=== PATIENT | female | born 2000 | race Two or more races ===

== ENCOUNTER 2023-03-05 17:33 | Emergency (ER) | payer OTHER ==
[~2023-03-05] VITALS: Ht 154.9 cm; Wt 51.7 kg
[2023-03-05 18:13] LABS: Basophils # (auto) 0 10 ^3/uL (0-0.2); Basophils % (auto) 0.3 % (0.0-2.0); Eosinophils # (auto) 0.1 10 ^3/uL (0-0.8); Eosinophils % (auto) 0.9 % (0.0-7.0); Hematocrit 39.9 % (36.0-46.0); Hemoglobin 13.3 g/dL (12.2-16.2); Lymphocytes # (auto) 1.7 10 ^3/uL (0.4-5.4); Lymphocytes % (auto) 16.5 % (10.0-50.0); Mean Corpuscular Hemoglobin 28.9 pg (28.0-32.0); Mean Corpuscular Hgb Conc. 33.3 g/dL (32.0-36.0); Mean Corpuscular Volume 86.9 fL (80.0-100.0); Monocytes # (auto) 0.7 10 ^3/uL (0-1.3); Monocytes % (auto) 6.3 % (0.0-12.0); Nucleated Red Blood Cells % 0.1 %; Red Blood Cells 4.59 10^6/uL (4.0-5.20); White Blood Cell 10.6 10^3/uL (4.4-10.8)
[2023-03-05 18:42] LABS: Albumin 4.2 g/dL (3.4-5.0); Calcium 9.1 mg/dL (8.5-10.1); Potassium 3.9 mmol/L (3.5-5.1)
[2023-03-05 18:46] LABS: Bilirubin, Total 0.2 mg/dL (0.2-1.0)
[2023-03-05 20:20] LABS: BUN/Creatinine Ratio 16.1 (10.0-20.0)
[2023-03-05] MEDS ORDERED: NITR-87 PO (21:07)
[2023-03-05 22:54] VITALS: BP 115/73
[2023-03-06 04:34] LABS: Urine Bacteria FEW /hpf (None Seen); Urine Blood Negative /uL (Negative); Urine Specific Gravity 1.008 (1.001-1.035); Urine WBC 1 /hpf (0 - 5)
== END 2023-03-05 23:02 | disposition home or self-care (01) ==
LOC: ER 17:33
DX: O23.41 Unspecified infection of urinary tract in pregnancy, first trimester (principal); N39.0 Urinary tract infection, site not specified; R10.2 Pelvic and perineal pain; Z3A.08 8 weeks gestation of pregnancy
CPT/HCPCS: 36415; 76705; 76801; 80053; 81001; 84702; 85025

== ENCOUNTER 2024-12-11 09:45 | Emergency (ER) | payer OTHER ==
[~2024-12-11] VITALS: Ht 154.9 cm; Wt 47.0 kg
[~2024-12-11 09:45] MED LIST: NITR-87 PO
[2024-12-11 11:01] LABS: Basophils # (auto) 0 10 ^3/uL (0-0.2); Basophils % (auto) 0.4 % (0.0-2.0); Eosinophils # (auto) 0.1 10 ^3/uL (0-0.8); Eosinophils % (auto) 1.6 % (0.0-7.0); Hematocrit 41.5 % (36.0-46.0); Hemoglobin 14.1 g/dL (12.2-16.2); Lymphocytes # (auto) 2.1 10 ^3/uL (0.4-5.4); Lymphocytes % (auto) 27.7 % (10.0-50.0); Mean Corpuscular Hemoglobin 30.7 pg (28.0-32.0); Mean Corpuscular Hgb Conc. 34.1 g/dL (32.0-36.0); Mean Corpuscular Volume 90.1 fL (80.0-100.0); Monocytes # (auto) 0.6 10 ^3/uL (0-1.3); Monocytes % (auto) 8.7 % (0.0-12.0); Neutrophils # (auto) 4.6 10 ^3/uL (1.6-8.6); Neutrophils % (auto) 61.6 % (37.0-80.0); Nucleated Red Blood Cells % 0.1 %; Platelet Count (auto) 223 10^3/uL (140-450); Red Cell Distribution Width 14.4 % (11.8-14.3); White Blood Cell 7.4 10^3/uL (4.4-10.8)
[2024-12-11 11:04] VITALS: BP 108/68; PULSE 83; RESP 18; TEMP 99.7; O2SAT 99
[2024-12-11 11:37] LABS: Urine Bacteria None Seen /hpf (None Seen)
[2024-12-11 11:47] LABS: Urine Blood Negative /uL (Negative); Urine Clarity Clear (Clear); Urine Color Light-Yellow (Yellow); Urine Protein, UAD Negative (Negative); Urine Specific Gravity 1.012 (1.001-1.035); Urine Squamous Epithelial Cell FEW /hpf (<5); Urine Urobilinogen Normal (Negative); Urine WBC < 1 /HPF (0-5)
--- NOTE | 2024-12-11 12:01 | ED.PDOC ---
COAL GETTER HPI Comments A 24 YEAR OLD FEMALE PRESENTS TO THE ED WITH CHIEF COMPLAINT OF POSSIBLE MISCARRIAGE. PATIENT REPORTS THAT SHE HAD [facility]ISITED [facility] TODAY FOR AN ULTRASOUND APPOINTMENT AND SHE WAS TOLD THAT THERE WERE 2 GESTATIONAL SACS, HOWEVER, NO "BABIES" WERE FOUND IN EITHER AND SHE MAY HAVE HAD A MISCARRIAGE. PATIENT RELAYS THAT SHE IS HERE TODAY TO CONFIRM IF SHE IS INDEED HAVING A MISCARRIAGE. PATIENT STATES SHE IS APPROXIMATELY 4-6 WEEKS AND HER LMP WAS ON 10/12/24. PATIENT NOTES SHE HAS HAD MILD ABDOMINAL CRAMPING AND LIGHT VAGINAL SPOTTING 4 DAYS AGO, BUT HER SYMPTOMS HAD SINCE RESOLVED. PATIENT DENIES ANY VAGINAL BLEEDING, DYSURIA, ABDOMINAL PAIN, FEVER, CHILLS, DIZZINESS, OR VAGINAL DISCHARGE. NO OTHER SYMPTOMS REPORTED AT THIS TIME OF CARE. Chief Complaint: Time Seen by MD: 11:58 Reviewed Notes: Nurses Notes, Medications, Allergies Allergies: Coded Allergies: NO KNOWN ALLERGIES (Unverified , 03/05/23) Home Meds Active Scripts Nitrofurantoin Monohydrate Mac (Macrobid) 100 Mg Cap, 100 MG PO BID for 5 Days, #10 CAP Prov:HENRRY TEE MD 03/05/23 Information Source: Patient, Spouse Mode of Arrival: Ambulatory Timing: Days Prehospital treatment: None Severity: Mild Vaginal Discharge: None Vaginal Lesions: None Bleeding Quality: Bright Red Vaginal Mass: None Onset Of Mass/Bleeding: Spontaneous Sexual Activity: Last Consensual [place]: Unknown Control: None History of: Current Associated Signs and Symptoms: Cramping Past Medical History PAST MEDICAL HISTORY: Denies Surgical History: Denies all surgeries CAR JOCKEY History: Denies all CAR JOCKEY Hx Family History Family History: Reviewed,noncontributory to illness Social History Smoker: Non-Smoker Alcohol: Denies ETOH Use Drugs: Marijuana Lives In: Home Constitutional: denies: chills, diaphoresis, fatigue, fever, malaise, sweats, weakness, others EENTM: denies: blurred vision, double vision, ear bleeding, ear discharge, ear drainage, ear pain, ear ringing, eye pain, eye redness, hearing loss, mouth pain, mouth swelling, nasal discharge, nose bleeding, nose congestion, nose pain, photophobia, tearing, throat pain, throat swelling, voice changes, others Respiratory: denies: cough, hemoptysis, orthopnea, SOB at rest, shortness of breath, SOB with excertion, stridor, wheezing, others Cardiovascular: denies: chest pain, dizzy spells, diaphoresis, Dyspnea on exertion, edema, irregular heart beat, left arm pain, lightheadedness, palpitations, PND, syncope, others Gastrointestinal: reports: others (MILD ABDOMINAL CRAMPING); denies: abdomen distended, abdominal pain, blood streaked bowels, constipated, diarrhea, dysphagia, difficulty swallowing, hematemesis, melena, nausea, poor appetite, poor fluid intake, rectal bleeding, rectal pain, vomiting Genitourinary: reports: , others (SPOTTING 4 DAYS AGO. ); denies: abnormal vagina bleeding, burning, dyspareunia, dysuria, flank pain, frequency, hematuria, incontinence, pain, vagina discharge, urgency Neurological: denies: dizziness, fainting, headache, left sided numbness, left sided weakness, numbness, paresthesia, pre-existing deficit, right sided numbness, right sided weakness, seizure, speech problems, tingling, tremors, weakness, others Musculoskeletal: denies: back pain, gout, joint pain, joint swelling, muscle pain, muscle stiffness, neck pain, others Integumetry: denies: bruises, change in color, change in hair/nails, dryness, laceration, lesions, lumps, rash, wounds, others Allergic/Immunocompromised: denies: Difficulty Healing, Frequent Infections, Hives, Itching, others Hematologic/Lymphatic: denies: anemia, blood clots, easy bleeding, easy bruising, swollen glands, others Endocrine: denies: excessive hunger, excessive sweating, excessive thirst, excessive urination, flushing, intolerance to cold, intolerance to heat, unexplained weight gain, unexplained weight loss, others Psychiatric: denies: anxiety, bipolar disorder, depression, hopeless, panic disorder, schizophrenia, sleepless, suicidal, others All Other Systems: Reviewed and Negative Physical Exam General Appearance: No Apparent Distress, Normal HEENT: Normal ENT Inspection, PERRL/EOMI, Pharynx Normal Neck: Full Range of Motion, Non-Tender, Normal, Normal Inspection Respiratory: Chest Non-Tender, Lungs Clear, No Accessory Muscle Use, No Respiratory Distress, Normal Breath Sounds Cardiovascular: No Edema, No JVD, No Murmur, No Gallop, Normal Peripheral Pulses, Regular Rate/Rhythm Breast Exam: Deferred Gastrointestinal: No Organomegaly, Non Tender, No Pulsatile Mass, Normal Bowel Sounds, Soft Genitalia: Deferred Pelvic: Normal External Exam, Other (NO VAGINAL SPOTTING AND BLEEDING. ) Rectal: Deferred Extremities: No calf tenderness, Normal capillary refill, Normal inspection, Normal range of motion, Non-tender, No pedal edema Musculoskeletal : Apperance: Normal Neurologic: Alert, hand packer/packager II-XII nml as Tested, No Motor Deficits, Normal Affect, Normal Mood, No Sensory Deficits Cerebellar Function: Normal Reflexes: Normal Skin: Dry, Normal Color, Warm Lymphatic: No Adenopathy Was a procedure done? Was a procedure done?: No Differential Diagnosis (CAR JOCKEY) Vaginal Bleeding: - Inevitable, - Threatened, Ectopic Vaginal Discharge: X-Ray, Labs, Meds, VS Vital Signs Date Time Temp Pulse Resp B/P (MAP) Pulse Ox O2 Delivery O2 Flow Rate FiO2 12/11/24 11:04 99.7 83 18 108/68 (81) 99 99.7 12/11/24 11:04 83 18 99 Room Air 12/11/24 10:17 99.7 83 18 108/68 (81) 99 Lab Test 12/11/24 11:00 12/11/24 10:42 Range/Units Urine Color Light-yellow Yellow Urine Clarity Clear Clear Urine pH 6.0 5.0-9.0 Urine Specific [place] 1.012 1.001-1.035 Urine Protein Negative Negative Urine Ketones Negative Negative Urine Blood Negative Negative /uL Urine Nitrite Negative Negative Urine Bilirubin Negative Negative Urine Urobilinogen Normal Negative mg/dL Urine Leukocyte Esterase Negative Negative /uL Urine RBC <1 0 - 4 /hpf Urine Microscopic WBC < 1 0-5 /HPF Urine Squamous Epithelial Cells Few <5 /hpf Urine Bacteria None seen None Seen /hpf Urine Glucose Normal Normal mg/dL Urine Test Positive Negative White Blood Count 7.4 4.4-10.8 10^3/uL Red Blood Count 4.60 4.0-5.20 10^6/uL Hemoglobin 14.1 12.2-16.2 g/dL Hematocrit 41.5 36.0-46.0 % Mean Corpuscular Volume 90.1 80.0-100.0 fL Mean Corpuscular Hemoglobin 30.7 28.0-32.0 pg Mean Corpuscular Hemoglobin Concent 34.1 32.0-36.0 g/dL Red Cell Distribution Width 14.4 H 11.8-14.3 % Platelet Count 223 140-450 10^3/uL Mean Platelet Volume 8.2 6.9-10.8 fL Neutrophils (%) (Auto) 61.6 37.0-80.0 % Lymphocytes (%) (Auto) 27.7 10.0-50.0 % Monocytes (%) (Auto) 8.7 0.0-12.0 % Eosinophils (%) (Auto) 1.6 0.0-7.0 % Basophils (%) (Auto) 0.4 0.0-2.0 % Neutrophils # (Auto) 4.6 1.6-8.6 10 ^3/uL Lymphocytes # (Auto) 2.1 0.4-5.4 10 ^3/uL Monocytes # (Auto) 0.6 0-1.3 10 ^3/uL Eosinophils # (Auto) 0.1 0-0.8 10 ^3/uL Basophils # (Auto) 0 0-0.2 10 ^3/uL Nucleated Red Blood Cells 0.1 % Beta HCG, Quantitative 43927.1 H 1.5-4.2 mIU/mL OB US: FINDINGS: The uterus measures 11.6 x 4.6 x 8.4 cm The cervix not well visualized. Right ovary measures 2.4 x 1.5 x 3.5 with normal Doppler color flow Left ovary measures 2.5 x 2.7 x 1.6 with normal Doppler color flow IUP TWIN A fetus at 5 weeks 1 day average ultrasound age based on gestational sac size of 1.1 cm. Debris is visualized in the gestational sac. heart rate not detected at this time. IUP TWIN B fetus at 5 weeks 2 days average ultrasound age based gestational sac size of 1.2 cm. Debris is visualized in the gestational sac. heart rate not detected at this time. Possible subchorionic hematoma measuring 2.7 cm. IMPRESSION: IUP TWIN A fetus at 5 weeks 1 day average ultrasound age based on gestational sac size of 1.1 cm. Debris is visualized in the gestational sac. heart rate not detected at this time. IUP TWIN B fetus at 5 weeks 2 days average ultrasound age based gestational sac size of 1.2 cm. Debris is visualized in the gestational sac. heart rate is not detected at this time. Possible subchorionic hematoma measuring 2.7 cm. Recommend correlation with beta HCG and short-term follow-up pelvic ultrasound as clinically indicated. X-Ray, Labs, Meds, VS Comment EXTERNAL MEDICAL RECORDS REVIEWED: 03/05/23 FOR ABDOMINAL PAIN DURING INDEPENDENT HISTORIANS: SPOUSE SOCIAL DETERMINANTS OF HEALTH: [NONE] LABS ORDERED: CBC, UA, URINE PREG, BETA HCG QUANT REVIEWED AND INTERPRETED RESULTS: OB US IMAGING ORDERED: OB US TREATMENTS ORDERED: NONE PROCEDURES PERFORMED: NONE CRITICAL CARE TIME: NONE I HAVE DISCUSSED THE PATIENT WITH THE ATTENDING PHYSICIAN DR. NAGEL AND HE AGREES WITH THE PATIENT'S PLAN OF CARE AND DISPOSITION. BASED ON HISTORY OF PRESENT ILLNESS, AND PHYSICAL EXAM, PATIENT WILL BE DISCHARGED HOME. DISCUSSED PLAN FOR DISCHARGE HOME WITH RX. MEDICATION WARNINGS GIVEN. SHARED DECISION MAKING: DISCUSSED WITH PATIENT THAT THEIR WORKUP WAS NORMAL. PATIENT INSTRUCTED TO FOLLOW UP WITH PRIMARY CARE PROVIDER IN 1-2 DAYS FOR RE- EVALUATION OF SYMPTOMS. PATIENT VERBALIZES UNDERSTANDING TO RETURN TO ED FOR NEW OR WORSENING SYMPTOMS OR IF FOLLOW UP WITH PCP CANNOT BE OBTAINED. PATIENT FEELS COMFORTABLE GOING HOME AT THIS TIME. ALL QUESTIONS ADDRESSED AT TIME OF DISCHARGE. Images Reviewed?: Images reviewed and evaluated by me Time of 1ST Reevaluation: 13:30 Reevaluation 1ST: Improved Patient Education/Counseling: Diagnosis, Treatment, Need For Follow Up Family Education/Counseling: Diagnosis, Treatment, Need For Follow Up Medical Screening: No EMC Exist At This Time Departure 1 Departure Time of Disposition: 13:30 Impression: Primary Impression: Twin in first trimester Qualified Codes: O30.001 - Twin , unspecified number of placenta and unspecified number of amniotic sacs, first trimester Disposition: 01 HOME / SELF CARE / HOMELESS Condition: Stable Additional Instructions: FOLLOW-UP WITH COAL GETTER IN 2 DAYS. TAKE MEDICATIONS PRESCRIBED. RETURN TO ED FOR ANY NEW OR WORSENING SYMPTOMS. Discharged With: Self, Spouse Critical Care Note Critical Care Time?: No Stability Stability form required: No Heart Score Heart Score: Heart Score Response (Comments) Value History N/A 0 EKG N/A 0 Age N/A 0 Risk Factors N/A 0 Troponin N/A 0 Total 0 I personally scribed for BECCA LONGO ([email or web address]) on 12/11/24 at 12:01. Electronically submitted by [place] Garcia ([email or web address]). I personally scribed for BECCA LONGO ([email or web address]) on 12/11/24 at 12:09. Electronically submitted by Los Garcia ([email or web address]). I personally scribed for BECCA LONGO ([email or web address]) on 12/11/24 at 12:14. Electronically submitted by Los Garcia ([email or web address]). I personally scribed for BECCA LONGO ([email or web address]) on 12/11/24 at 13:18. Electronically submitted by Los Garcia ([email or web address]). BECCA LONGO Dec 11, 2024 12:01
--- NOTE | 2024-12-11 13:15 | DVH ---
OB ULTRASOUND <14 WEEKS: HISTORY: PELVIC CRAMPS, BETA-HC.1 TECHNIQUE: Multiple real-time grayscale sonographic images of the pelvis with duplex Doppler color f low, spectral and M-mode analysis. TRANSDUCERS: Transabdominal and transvaginal FINDINGS: The uterus measures 11.6 x 4.6 x 8.4 cm The cervix not well visualized. Right ovary measures 2.4 x 1.5 x 3.5 with normal Doppler color flow Left ovary measures 2.5 x 2.7 x 1.6 with normal Doppler color flow IUP TWIN A fetus at 5 weeks 1 day average ultrasound age based on gestational sac size of 1.1 cm. De bris is visualized in the gestational sac. heart rate not detected at this time. IUP TWIN B fetus at 5 weeks 2 days average ultrasound age based gestational sac size of 1.2 cm. Apple ris is visualized in the gestational sac. heart rate not detected at this time. Possible subchorionic hematoma measuring 2.7 cm. IMPRESSION: IUP TWIN A fetus at 5 weeks 1 day average ultrasound age based on gestational sac size of 1.1 cm. De bris is visualized in the gestational sac. heart rate not detected at this time. IUP TWIN B fetus at 5 weeks 2 days average ultrasound age based gestational sac size of 1.2 cm. Apple ris is visualized in the gestational sac. heart rate is not detected at this time. Possible subchorionic hematoma measuring 2.7 cm. Recommend correlation with beta HCG and short-term follow-up pelvic ultrasound as clinically indicate d.
== END 2024-12-11 13:30 | disposition home or self-care (01) ==
LOC: ER 09:45
DX: O30.001 Twin pregnancy, unspecified number of placenta and unspecified number of amniotic sacs, first trimester (principal); O26.891 Other specified pregnancy related conditions, first trimester; Z3A.08 8 weeks gestation of pregnancy
CPT/HCPCS: 36415; 76801; 81001; 81025; 84702; 85025

== ENCOUNTER 2024-12-25 02:00 | Emergency (ER) | payer OTHER ==
[~2024-12-25] VITALS: Ht 152.4 cm; Wt 49.4 kg
--- NOTE | 2024-12-25 02:48 | ED.PDOC ---
MANAGER IMPLEMENTATION HPI Comments 24 year old female presents to the ED with a chief complaint of vaginal bleeding onset today (12/25/2024) about 1 hour ago. Patient states she went to the restroom and noted dark blood as well as slight cramping. Patient is currently 8 weeks , was seen in this ED on 12/11/2024 and was told she was 5 weeks with twins. Patient has not seen OBGYN, has an appointment 12/29/24. P:0. LMP 10/12/24. Denies any PMHx as well as nausea, vomiting, fall, injury, chest pain, shortness of breath, dysuria, fever. No other symptoms or modifying factors present at this time. Chief Complaint: Vaginal Bleed Time Seen by MD: 02:35 Reviewed Notes: Medications, Allergies Allergies: Coded Allergies: NO KNOWN ALLERGIES (Unverified , 03/05/23) Home Meds Active Scripts Nitrofurantoin Monohydrate Mac (Macrobid) 100 Mg Cap, 100 MG PO BID for 5 Days, #10 CAP Prov:HENRRY TEE MD 03/05/23 Information Source: Patient Mode of Arrival: Ambulatory Timing: Hours Prehospital treatment: None Severity: Moderate Vaginal Discharge: None Vaginal Lesions: None Bleeding Quality: Dark Vaginal Mass: None Onset Of Mass/Bleeding: Spontaneous Sexual Activity: Last Consensual [place]: Unknown Control: None History of: Current Symptoms of Possible : Missed Period Associated Signs and Symptoms: Vaginal Bleeding, Cramping Past Medical History PAST MEDICAL HISTORY: Denies Surgical History: Denies all surgeries CAMPAIGN COORDINATOR History: Denies all CAMPAIGN COORDINATOR Hx Family History Family History: Reviewed,noncontributory to illness Social History Smoker: Non-Smoker Alcohol: Denies ETOH Use Drugs: Marijuana Lives In: Home Constitutional: denies: chills, diaphoresis, fatigue, fever, malaise, sweats, weakness, others EENTM: denies: blurred vision, double vision, ear bleeding, ear discharge, ear drainage, ear pain, ear ringing, eye pain, eye redness, hearing loss, mouth pain, mouth swelling, nasal discharge, nose bleeding, nose congestion, nose pain, photophobia, tearing, throat pain, throat swelling, voice changes, others Respiratory: denies: cough, hemoptysis, orthopnea, SOB at rest, shortness of breath, SOB with excertion, stridor, wheezing, others Cardiovascular: denies: chest pain, dizzy spells, diaphoresis, Dyspnea on exertion, edema, irregular heart beat, left arm pain, lightheadedness, palpitations, PND, syncope, others Gastrointestinal: denies: abdomen distended, abdominal pain, blood streaked bowels, constipated, diarrhea, dysphagia, difficulty swallowing, hematemesis, melena, nausea, poor appetite, poor fluid intake, rectal bleeding, rectal pain, vomiting, others Genitourinary: reports: abnormal vagina bleeding, ; denies: burning, dyspareunia, dysuria, flank pain, frequency, hematuria, incontinence, pain, vagina discharge, urgency, others Neurological: denies: dizziness, fainting, headache, left sided numbness, left sided weakness, numbness, paresthesia, pre-existing deficit, right sided numbness, right sided weakness, seizure, speech problems, tingling, tremors, weakness, others Musculoskeletal: denies: back pain, gout, joint pain, joint swelling, muscle pain, muscle stiffness, neck pain, others Integumetry: denies: bruises, change in color, change in hair/nails, dryness, laceration, lesions, lumps, rash, wounds, others Allergic/Immunocompromised: denies: Difficulty Healing, Frequent Infections, Hives, Itching, others Hematologic/Lymphatic: denies: anemia, blood clots, easy bleeding, easy bruising, swollen glands, others Endocrine: denies: excessive hunger, excessive sweating, excessive thirst, excessive urination, flushing, intolerance to cold, intolerance to heat, unexplained weight gain, unexplained weight loss, others Psychiatric: denies: anxiety, bipolar disorder, depression, hopeless, panic disorder, schizophrenia, sleepless, suicidal, others All Other Systems: Reviewed and Negative Physical Exam General Appearance: No Apparent Distress, Normal HEENT: Normal ENT Inspection, Pharynx Normal, TMs Normal Neck: Full Range of Motion, Non-Tender, Normal, Normal Inspection Respiratory: Chest Non-Tender, Lungs Clear, No Accessory Muscle Use, No Respiratory Distress, Normal Breath Sounds Cardiovascular: No Edema, No JVD, No Murmur, No Gallop, Normal Peripheral Pulses, Regular Rate/Rhythm Breast Exam: Deferred Gastrointestinal: No Organomegaly, Non Tender, No Pulsatile Mass, Normal Bowel Sounds, Soft Genitalia: Deferred Pelvic: Deferred Rectal: Deferred Extremities: No calf tenderness, Normal capillary refill, Normal inspection, Normal range of motion, Non-tender, No pedal edema Musculoskeletal : Apperance: Normal Neurologic: Alert, spud grader II-XII nml as Tested, No Motor Deficits, Normal Affect, Normal Mood, No Sensory Deficits Cerebellar Function: Normal Reflexes: Normal Skin: Dry, Normal Color, Warm Lymphatic: No Adenopathy Was a procedure done? Was a procedure done?: No X-Ray, Labs, Meds, VS Vital Signs Date Time Temp Pulse Resp B/P (MAP) Pulse Ox O2 Delivery O2 Flow Rate FiO2 12/25/24 02:12 98.1 107 20 130/94 (106) 99 Lab Test 12/25/24 03:27 12/25/24 02:22 Range/Units White Blood Count 8.2 4.4-10.8 10^3/uL Red Blood Count 4.58 4.0-5.20 10^6/uL Hemoglobin 13.5 12.2-16.2 g/dL Hematocrit 41.2 36.0-46.0 % Mean Corpuscular Volume 90.0 80.0-100.0 fL Mean Corpuscular Hemoglobin 29.6 28.0-32.0 pg Mean Corpuscular Hemoglobin Concent 32.9 32.0-36.0 g/dL Red Cell Distribution Width 14.1 11.8-14.3 % Platelet Count 232 140-450 10^3/uL Mean Platelet Volume 8.3 6.9-10.8 fL Neutrophils (%) (Auto) 60.0 37.0-80.0 % Lymphocytes (%) (Auto) 29.2 10.0-50.0 % Monocytes (%) (Auto) 8.4 0.0-12.0 % Eosinophils (%) (Auto) 1.8 0.0-7.0 % Basophils (%) (Auto) 0.6 0.0-2.0 % Neutrophils # (Auto) 4.9 1.6-8.6 10 ^3/uL Lymphocytes # (Auto) 2.4 0.4-5.4 10 ^3/uL Monocytes # (Auto) 0.7 0-1.3 10 ^3/uL Eosinophils # (Auto) 0.1 0-0.8 10 ^3/uL Basophils # (Auto) 0 0-0.2 10 ^3/uL Nucleated Red Blood Cells 0.2 % Sodium Level 137 136-145 mmol/L Potassium Level 4.0 3.5-5.1 mmol/L Chloride Level 107 98-107 mmol/L Carbon Dioxide Level 22 20-31 mmol/L Anion Gap 8 5-15 Blood Urea Nitrogen 8 L 9-23 mg/dL Creatinine 0.53 L 0.550-1.02 mg/dL Glomerular Filtration Rate Calc 132 >90 mL/min BUN/Creatinine Ratio 15.1 10.0-20.0 Serum Glucose 94 74-106 mg/dL Calcium Level 9.7 8.7-10.4 mg/dL Beta HCG, Quantitative 03308.8 H 1.5-4.2 mIU/mL Urine Color Colorless Yellow Urine Clarity Clear Clear Urine pH 6.5 5.0-9.0 Urine Specific [place] 1.003 1.001-1.035 Urine Protein Negative Negative Urine Ketones Negative Negative Urine Blood 2+ H Negative /uL Urine Nitrite Negative Negative Urine Bilirubin Negative Negative Urine Urobilinogen Normal Negative mg/dL Urine Leukocyte Esterase Negative Negative /uL Urine RBC <1 0 - 4 /hpf Urine Microscopic WBC 0-5 /HPF Urine Squamous Epithelial Cells None seen <5 /hpf Urine Bacteria None seen None Seen /hpf Urine Sperm Present None Seen /hpf Urine Glucose Normal Normal mg/dL Time of 1ST Reevaluation: 03:05 Reevaluation 1ST: Unchanged Patient Education/Counseling: Diagnosis, Treatment, Prognosis Family Education/Counseling: No Family Present Additional Information The following tests were ordered, and results were reviewed by me: BETA HCG, BMP, CBC, UA, OB ULTRASOUND COMP LESS 14 WKS, ABORH TYPE I reviewed and agreed with the following test results read by other providers:OB ULTRASOUND COMP LESS 14 WKS, I discussed treatment and results with medical personnel and: patient Departure 1 Departure Time of Disposition: 05:41 (Patient with a threatened miscarriage, subchorionic hemorrhage and possible twins. The patient home with outpatient follow up) Impression: Primary Impression: Twin in first trimester Qualified Codes: O30.091 - Twin , unable to determine number of placenta and number of amniotic sacs, first trimester Additional Impressions: Subchorionic hemorrhage Qualified Codes: O20.8 - Other hemorrhage in early Threatened miscarriage Disposition: 01 HOME / SELF CARE / HOMELESS Condition: Stable Additional Instructions: You have a threatened miscarriage. Your beta hcg level today was 028[address]. Your ultrasound showed a likely twin and a subchorionic hemorrhage. . You should follow up with OBGYN within three days to recheck your blood work. If your symptoms worsen or you have any other concerns then please return to the ER. Discharged With: Self Critical Care Note Critical Care Time?: No Stability Stability form required: No I personally scribed for JESSY JEFFERS MD ([email or web address]) on 12/25/24 at 02:48. Electronically submitted by Shelby Vázquez ([email or web address]). I personally scribed for JESSY JEFFERS MD ([email or web address]) on 12/25/24 at 02:57. Electronically submitted by Shelby Vázquez ([email or web address]). I personally scribed for JESSY JEFFERS MD ([email or web address]) on 12/25/24 at 03:12. Electronically submitted by Shelby Vázquez ([email or web address]). JESSY JEFFERS MD Dec 25, 2024 02:48
[2024-12-25 03:16] LABS: Urine Bacteria None Seen /hpf (None Seen)
[2024-12-25 03:45] LABS: Basophils # (auto) 0 10 ^3/uL (0-0.2); Basophils % (auto) 0.6 % (0.0-2.0); Eosinophils # (auto) 0.1 10 ^3/uL (0-0.8); Eosinophils % (auto) 1.8 % (0.0-7.0); Hematocrit 41.2 % (36.0-46.0); Hemoglobin 13.5 g/dL (12.2-16.2); Lymphocytes # (auto) 2.4 10 ^3/uL (0.4-5.4); Lymphocytes % (auto) 29.2 % (10.0-50.0); Mean Corpuscular Hemoglobin 29.6 pg (28.0-32.0); Mean Corpuscular Hgb Conc. 32.9 g/dL (32.0-36.0); Monocytes # (auto) 0.7 10 ^3/uL (0-1.3); Monocytes % (auto) 8.4 % (0.0-12.0); Neutrophils # (auto) 4.9 10 ^3/uL (1.6-8.6); Nucleated Red Blood Cells % 0.2 %; Platelet Count (auto) 232 10^3/uL (140-450); Red Blood Cells 4.58 10^6/uL (4.0-5.20); Red Cell Distribution Width 14.1 % (11.8-14.3); White Blood Cell 8.2 10^3/uL (4.4-10.8)
[2024-12-25 04:01] LABS: Urine Blood 2+ /uL (Negative); Urine Clarity Clear (Clear); Urine Color Colorless (Yellow); Urine Protein, UAD Negative (Negative); Urine Specific Gravity 1.003 (1.001-1.035); Urine Sperm PRESENT /hpf (None Seen); Urine Squamous Epithelial Cell None Seen /hpf (<5); Urine Urobilinogen Normal (Negative); Urine pH 6.5 (5.0-9.0)
--- NOTE | 2024-12-25 04:01 | DVH ---
Examination: OB4US -TA/TV CLINICAL INDICATION: abdominal pain and vaginal bleeding COMPARISON: None. TECHNIQUE: Transabdominal and transvaginal first trimester OB ultrasound was performed. FINDINGS: Real-time ultrasound examination of the pelvis shows a normal anteverted uterus with a pos sible twin well-defined intrauterine gestational sac with debris or other cystic structure. No yolk sac or pole is seen at this time. No cardiac activity is seen. Subchorionic hemorrhage seen measuring 47 x 46 x 12 mm. TWIN A: Gestational Sac: Measuring 1.4 cm - 5 weeks 4 days.No yolk sac or pole or cardiac activity visualized.SCHUYLER- 08/23.TWIN B: Gestational Sac: Measuring 1.34 cm - 5 weeks 4 days.No yolk sac or pole or cardiac activity visualized.SCHUYLER- 08/05.Ovaries: Right Ovary: Measures 3.3 x 2.1 x 2.7 cm, unremarkable.Left Ovary: Measures 2.9 x 1.9 x 2.2 cm, unrem arkable. Cervix: Internal os is closed.Cervical length is adequate.IMPRESSION: 1. A possible twin well-defined intrauterine gestational sac with debris or other cystic structure. No yolk sac or pole is seen at this time. No cardiac activity is seen. 2. Subchorionic hemorrhage. 3. Findings may represent an early twin versus an abnormal gestation. 4. Recommend follow-up ultrasound to assess for interval development. RECOMMENDATIONS: 1. Correlation with serial beta-hCG levels. 2. Follow-up ultrasound in 1-2 weeks to assess for development. 3. Clinical follow-up for symptoms of pain or bleeding. Electronically Signed 12/25/2024 03:59 Casey Giordano
[2024-12-25 04:25] LABS: Sodium 137 mmol/L (136-145)
[2024-12-25 04:26] LABS: Anion Gap 8 (5-15); Carbon Dioxide 22 mmol/L (20-31)
[2024-12-25 04:27] LABS: Calcium 9.7 mg/dL (8.7-10.4)
[2024-12-25 04:31] LABS: Glucose 94 mg/dL (74-106)
[2024-12-25 04:32] LABS: BUN/Creatinine Ratio 15.1 (10.0-20.0)
[2024-12-25 04:33] LABS: Blood Urea Nitrogen 8 mg/dL (9-23); Chloride 107 mmol/L (98-107)
[2024-12-25 05:56] VITALS: BP 109/75; PULSE 110; RESP 18; TEMP 98.5; O2SAT 98
== END 2024-12-25 05:59 | disposition home or self-care (01) ==
LOC: ER 02:00
DX: O20.0 Threatened abortion (principal); O30.001 Twin pregnancy, unspecified number of placenta and unspecified number of amniotic sacs, first trimester; F12.10 Cannabis abuse, uncomplicated; Z36.86 Encounter for antenatal screening for cervical length; Z3A.08 8 weeks gestation of pregnancy; Z3A.01 Less than 8 weeks gestation of pregnancy
CPT/HCPCS: 36415; 76801; 76817; 80048; 81001; 84702; 85025; 86900; 86901